=== PATIENT | female | born 1985 | race Asian ===

== ENCOUNTER 2017-07-31 00:06 | Emergency (ER) | payer BC ==
[~2017-07-31] VITALS: Ht 165.1 cm; Wt 119.8 kg
[2017-07-31 00:43] LABS: PLATELET COUNT 229 K/uL (152-353)
[2017-07-31 01:24] VITALS: BP 132/81; TEMP 98.4
== END 2017-07-31 01:32 | disposition home or self-care (01) ==
LOC: ED 00:06
DX: J02.0 Streptococcal pharyngitis (principal)
CPT/HCPCS: 85027; 87804; 87880; 96372; 99283; J0696

== ENCOUNTER 2018-06-11 21:27 | Emergency (ER) | payer BC ==
[~2018-06-11] VITALS: Ht 162.6 cm; Wt 113.4 kg
[2018-06-11 23:24] LABS: PLATELET COUNT 216 K/uL (152-353)
[2018-06-11 23:25] LABS: POTASSIUM 3.1 mmol/L (3.6-5.2); SODIUM 141 mmol/L (136-145)
[2018-06-12 00:48] VITALS: BP 135/86; TEMP 97.7
== END 2018-06-12 00:49 | disposition home or self-care (01) ==
LOC: ED 21:27
PROVIDERS: Emergency Medicine
DX: I10 Essential (primary) hypertension (principal); R07.89 Other chest pain; R00.0 Tachycardia, unspecified
CPT/HCPCS: 36415; 80053; 82550; 84484; 85027; 93005; 99284

== ENCOUNTER 2019-05-24 15:42 | Emergency (ER) | payer OTHER ==
[~2019-05-24] VITALS: Ht 165.1 cm; Wt 117.9 kg
[2019-05-24 16:41] LABS: PLATELET COUNT 245 K/uL (152-353)
[2019-05-24 16:47] LABS: POTASSIUM 3.5 mmol/L (3.6-5.2); SODIUM 140 mmol/L (136-145)
[2019-05-24 18:40] VITALS: BP 134/90; TEMP 97.7
== END 2019-05-24 18:40 | disposition home or self-care (01) ==
LOC: ED 15:42
PROVIDERS: Family Medicine
DX: R07.89 Other chest pain (principal); R51 Headache; E87.6 Hypokalemia; R00.0 Tachycardia, unspecified
CPT/HCPCS: 80053; 82550; 82553; 84484; 85027; 93005; 99284

== ENCOUNTER 2019-05-25 11:07 | Emergency (ER) | payer OTHER ==
[~2019-05-25] VITALS: Ht 165.1 cm; Wt 117.9 kg
[2019-05-25 11:15] VITALS: TEMP 98.2
[2019-05-25 12:08] LABS: PLATELET COUNT 231 K/uL (152-353)
[2019-05-25 12:20] LABS: POTASSIUM 4.3 mmol/L (3.6-5.2); SODIUM 140 mmol/L (136-145)
[2019-05-25 13:15] VITALS: BP 140/99
== END 2019-05-25 13:46 | disposition home or self-care (01) ==
LOC: ED 11:07
PROVIDERS: Emergency Medicine
DX: I10 Essential (primary) hypertension (principal); R51 Headache
CPT/HCPCS: 80053; 81025; 82550; 82553; 84484; 85027; 93005; 99283

== ENCOUNTER 2021-09-18 09:04 | Emergency (ER) | payer OTHER ==
[~2021-09-18] VITALS: Ht 162.6 cm; Wt 122.5 kg
[2021-09-18 09:11] VITALS: TEMP 98.7
[2021-09-18 09:55] LABS: PLATELET COUNT 190 K/uL (152-353)
[2021-09-18 10:02] LABS: POTASSIUM 3.1 mmol/L (3.6-5.2)
[2021-09-18 11:30] VITALS: BP 131/77
== END 2021-09-18 11:35 | disposition home or self-care (01) ==
LOC: ED 09:04
PROVIDERS: Emergency Medicine
DX: I10 Essential (primary) hypertension (principal); U07.1 COVID-19; F17.210 Nicotine dependence, cigarettes, uncomplicated
CPT/HCPCS: 80053; 85027; 87502; 87635; 99283; U0003

== ENCOUNTER 2023-01-16 06:35 | Outpatient (CLI) | payer OTHER ==
[2023-01-16 07:37] LABS: PLATELET COUNT 218 K/uL (152-353)
[2023-01-16 08:05] LABS: POTASSIUM 3.8 mmol/L (3.6-5.2)
== END 2023-01-16 19:07 | disposition home or self-care (01) ==
LOC: LABW 06:35
PROVIDERS: ATTEND Nurse Practitioner Family
DX: I10 Essential (primary) hypertension (principal)
CPT/HCPCS: 36415; 80053; 84436; 84443; 84479; 85027